=== PATIENT | male | born 1955 | race Caucasian/White ===

== ENCOUNTER 2021-10-09 09:09 | Day surgery (SDC) | payer OTHER, SELFPAY ==
--- NOTE | 2021-10-09 09:40 | HP.PCM_ITS ---
History and Physical Date of Admission: 10/09/21 Intake Visit Reasons:?EGD/CSCOPE Chief Complaint: EGD/CSCOPE Electrical Maintenance Technician Required: No Is patient in pain?: No PFSH Medical History?(Updated 09/17/21 @ 07:[address] Nickolas Latham MD) Hemorrhoids Surgical History?(Updated 09/17/21 @ 07:26 by Rox Tuesday) H/O shoulder replacement History of brain surgery History of hip replacement HPI HPI HPI: NASEEM RAMOS, is a 66 M who presents to the office today for Consultation regarding consideration for esophagogastroduodenoscopy with a history of gastroesophageal reflux disease and screening colonoscopy.? Patient has a history of intermittent bright red rectal bleeding.? He needs ongoing investigation regarding varices.? He has a history of liver disease and esophageal varices.? Apparently his most recent liver clinic evaluation was 2019.? The patient complains of epigastric burning.? It is improved with zxuz-mfu-pvaiacy 20 mg omeprazole therapy.He has had some intermittent bright red rectal bleeding over the past year.? As of August 05, 2021 white blood cell count was 6.5 with a hemoglobin 13.8 and hematocrit of 40.7 with a platelet count of 126,000.? His albumin was 3.9 with an alkaline phosphatase of 88 and ALT of 24 and an AST of 32 with a total bilirubin of 0.8 and a direct bilirubin of 0.2.? It is of note that on July 21, 2021 his hemoglobin A1c was 9.4 liver ultrasound done August 01, 2019 demonstrated common bile duct dilatation although less than previously with findings consistent with hepatic cirrhosis and hepatomegaly and decreased portal venous velocity.? Distended gallbladder with numerous small gallstones. Records from September 13, 2019 upper endoscopy demonstrates 4 columns of grade 2 varices found in the middle third of the esophagus and distal third of the esophagus with no stigmata of bleeding.? Additionally there were felt to be diffuse areas of mild hypertensive portal gastropathy within the cardia and body and antrum of the stomach.? There were no varices within the stomach.? The patient had a colonoscopy at the same setting.? 2 small sessile polyps were found in the sigmoid colon and removed with cold snare.? An additional polyp was seen in the sigmoid colon.? An additional polyp found in the ascending colon.? Additional polyp in the transverse colon.? Additional polyp in the rectum.? There were felt to be a medium sized rectal varices.? Diffuse portalcolopathy grading of esophageal varices.? Moderate diverticulosis. When esophageal varices are discovered, they are graded according to their size, as follows: * Grade 1 ? Small, straight esophageal varices * Grade 2 ? Enlarged, tortuous esophageal varices occupying less than one third of the lumen * Grade 3 ? Large, coil-shaped esophageal varices occupying more than one third of the lumen Upon arrival the patient states that he is already scheduled to have an EGD performed at the [facility] later this September.? He states however that he is not scheduled to have his colonoscopy at the same setting. ROS General General: Yes fatigue; No weight change, appetite, colon cancer, breast cancer or weakness HEENT HEENT: Yes eye surgery; No difficulty swallowing, eye injury, swollen glands or hoarseness Endo Endocrine: No thyroid disease, diabetes mellitus, thyroid cancer, Hair loss, heat intolerance or cold intolerance Skin Skin: No rash or changing moles Musc Musculoskeletal: Yes back problems, arthritis and rheumatoid arthritis; No gout or joint pain Cardio Cardiovascular: Yes high blood pressure; No murmur, pacemaker, heart disease, atrial fibrillation, heart attack, heart stent, palpitations, shortness of breat with exertion or chest pain Psych Psychiatric: Yes depression; No anxiety or hearing voices Resp Respiratory: Yes shortness of breath, Yes sleep apnea, Yes cough, No COPD, No asthma, No emphysema and No wheezing Gastro Gastrointestinal: No abdominal pain, No nausea or vomiting, Yes diarrhea, No constipation, Yes blood in stool, No acid reflux, Yes hemorrhoids, No ulcers, No gallbladder problem and No black,tarry stools Nakul Hematologic: No blood thinners, No blood disorders, Yes bleeding, No anemia and No blood clots Neuro Neurologic: No system reviewed and no additional complaints, except as documented, No as per HPI, No abnormal gait, No abnormal hearing, No abnormal movements, No abnormal speech, No behavioral changes, No burning sensations, No confusion, No convulsions, No disequilibrium, No dizziness, No localized weakness, No frequent falls, No headache(s), No lack of coordination, No loss of vision, No memory loss, No numbness, No other visual disturbances, No radicular pain, No restless legs, No sensory deficit, No syncope, No tingling, No t remor(s), No weakness and No other Exam Const General: cooperative, comfortable and no acute distress Nutritional Appearance: obese Resp Effort & Inspection: normal respiratory effort Cardio Rate: regular rate Rhythm: regular rhythm Other: 2/6 systolic ejection murmur GI Inspection: normal to inspection Assessment and Plan Assessment and Plan (1) Blood in stool: ?Status:?Acute (2) Esophageal varices determined by endoscopy: ?Status:?Acute ?Plan: Slight amount of confusion the patient's presentation today.? He states that he is already scheduled in [place] to have his upper endoscopy.? Quite frankly it would make appropriate sense for him to have a colonoscopy at the same setting.? We will try to assist the patient by contacting the [facility] and see if we can expedite that care for him.? I appreciate the opportunity of assisting with the surgical care. Copy: [facility] Nickolas Latham M.D., F.A.C.S. I have re-examined the patient. There are no clinical changes since date of exam. Nickolas Latham M.D., F.A.C.S.
[2021-10-09] MEDS: Lactated Ringers 1,000 ML 15 ML IV (09:47)
[2021-10-09 09:49] VITALS: BP 126/92; PULSE 78; RESP 16; TEMP 36.6; O2SAT 98; BMI 34.1
--- NOTE | 2021-10-09 10:00 | IMM_PTH ---
PATIENT: NASEEM RAMOS LOC: EN U#:[id number] AGE/SX: 66/M ROOM: RE10/09/[address]: Dr. Nickolas Latham MD : 1955 BED: DIS: 10/09/2021 SPEC #: [id number] RECD: 10/09/21 13:15 STATUS: MYRIAM REJessenia #: [id number] PATRICE: 10/09/21 10:[address]: Nickolas Latham DEPT: IMMUNOHISTOCHEMISTRY RECD BY: Mely Mena ENTERED: 10/09/21 13:15 SP TYPE: IMMUNO OTHR DR: [facility] Tissues: A - Stomach, NOS Procedures: H Pylori (initial) PHYSICIAN & INSTITUTION [place] [id number] SPECIMEN INFORMATION: Tissue Source: A ? Antrum biopsy Clinical Info: Blood in stool, esophageal varices Specimen Number: [id number] CPT code: 10285 METHODOLOGY: Deparaffinized sections of prefer/formalin-fixed tissue or PAP/DQ stained slides are incubated with monoclonal/polyclonal antibodies/oligonucleotide probes. Localization is made via biotin free immunoperoxidase method. Appropriate controls are performed and reacted as expected. Results on target cell population are indicated in the following table: RESULTS: ANTIBODY / CLONE RESULT Block A H Pylori (polyclonal) negative These tests were developed and their performance characteristics determined by [facility]. They may not have been cleared or approved by the U.S. Food and Drug Administration. The FDA has determined that such clearance or approval is not necessary. The above immunohistochemical/dualISH markers are ordered and reviewed by the Pathologist. INTERPRETATION: A. Antrum, biopsy: Negative for Helicobacter pylori organisms. SJ:radha 10/13/2021
--- NOTE | 2021-10-09 10:00 | EGD_PTH ---
PATIENT: NASEEM RAMOS LOC: EN U#:[id number] AGE/SX: 66/M ROOM: RE10/09/[address]: Dr. Nickolas Latham MD : 1955 BED: DIS: 10/09/2021 SPEC #: [id number] RECD: 10/09/21 12:19 STATUS: MYRIAM DENIA #: [id number] PATRICE: 10/09/21 10:[address]: Nickolas Latham DEPT: SURGICAL PATHOLOGY RECD BY: Dana Ferrer ENTERED: 10/09/21 13:03 SP TYPE: EGD BIOPSY OT DR: [facility] Tissues: A - Gastric mucous membrane B - Sigmoid colon biopsy Procedures: Surgery Specimen Level IV HEADER OPERATION: Colonoscopy with biopsy, EGD with biopsy ([facility]) PRE-OP DIAGNOSIS: Blood in stool, esophageal varices TISSUE SUBMITTED: A ? Antrum biopsy, B ? Mid sigmoid colon polyp MICROSCOPIC DIAGNOSIS A. Antrum, biopsy: Mild gastritis. See microscopic description and comment. B. Mid sigmoid colon polyp, biopsy: Hyperplastic polyp. TUCKER:radha 10/12/2021 COMMENT A. The results of immunohistochemistry for Helicobacter pylori will be reported separately ([id number]). MICROSCOPIC DESCRIPTION Slides are reviewed. A. The specimen shows fragments of gastric mucosa with chronic inflammatory cell infiltrates in the lamina propria consisting of lymphocytes and plasma cells, consistent with mild chronic gastritis. GROSS DESCRIPTION A - Received in fixative is one container labeled with the patient's name and designated antrum biopsy. The specimen consists of one irregular fragment of light limon soft tissue that measures 0.3 x 0.3 x 0.1 cm. The specimen is totally submitted in one cassette. B - Received in fixative is one container labeled with the patient's name and designated mid sigmoid colon polyp. The specimen consists of one irregular fragment of light limon soft tissue that measures 0.3 x 0.3 x 0.1 cm. The specimen is totally submitted in one cassette. / TUCKER:radha 10/09/2021 TC:3 CPT: 84039 x2
[2021-10-09 11:01] LABS: Bedside Glucose 265 mg/dL (74-106)
--- NOTE | 2021-10-09 12:04 | OP.EGD_ITS ---
Patient Name: Manuel Greer Procedure Date: 10/09/2021 11:27 AM Date of : 1955 Age: 66 Procedure: Upper GI endoscopy Indications: 1st degree variceal surveillance (known small varices, no prior bleeding) Providers: Nickolas Latham MD Medicines: See the Anesthesia note for documentation of the administered medications Complications: No immediate complications. Procedure: Pre-Anesthesia Assessment: - Prior to the procedure, a History and Physical was performed, and patient medications and allergies were reviewed. The patient's tolerance of previous anesthesia was also reviewed. The risks and benefits of the procedure and the sedation options and risks were discussed with the patient. All questions were answered, and informed consent was obtained. Prior Anticoagulants: The patient has taken no previous anticoagulant or antiplatelet agents. ASA Grade Assessment: III - A patient with severe systemic disease. After reviewing the risks and benefits, the patient was deemed in satisfactory condition to undergo the procedure. After obtaining informed consent, the endoscope was passed under direct vision. Throughout the procedure, the patient's blood pressure, pulse, and oxygen saturations were monitored continuously. The gastroscope was introduced through the mouth, and advanced to the second part of duodenum. The upper GI endoscopy was accomplished without difficulty. The patient tolerated the procedure well. Scope In: 11:33:40 AM Scope Out: 11:38:16 AM Total Procedure Duration Time 0 hours 4 minutes 36 seconds Findings: Grade II varices were found in the middle third of the esophagus and in the lower third of the esophagus. Diffuse mildly erythematous mucosa without bleeding was found in the gastric antrum. Biopsies were taken with a cold forceps for histology. Diffuse mildly friable mucosa with no bleeding was found in the stomach. The examined duodenum was normal. Impression: - Grade II esophageal varices. 3 columns Hiatal hernia - Erythematous mucosa in the antrum. Biopsied. - Friable gastric mucosa. - Normal examined duodenum. Recommendation: - Discharge patient to home. - Resume previous diet. - Continue present medications. - Telephone my office for pathology results in 1 week. Procedure Code(s): --- Professional --- 08317, Esophagogastroduodenoscopy, flexible, transoral; with biopsy, single or multiple Diagnosis Code(s): --- Professional --- I85.00, Esophageal varices without bleeding K31.89, Other diseases of stomach and duodenum CPT copyright 2017 [employer]. All rights reserved. The codes documented in this report are preliminary and upon line service attendant review may be revised to meet current compliance requirements. Nickolas Latham MD 10/09/2021 12:03:42 PM This report has been signed electronically. Number of Addenda: 0 Note Initiated On: 10/09/2021 11:27 AM
--- NOTE | 2021-10-09 12:04 | OP.CCLET_ITS ---
10/09/2021 [facility] Re : Upper GI endoscopy procedure for [facility] This procedure was performed on Saturday, October 09, 2021. My impressions and recommendations are as follows: Impressions : - Grade II esophageal varices. 3 columns Hiatal hernia - Erythematous mucosa in the antrum. Biopsied. - Friable gastric mucosa. - Normal examined duodenum. Recommendations : - Discharge patient to home. - Resume previous diet. - Continue present medications. - Telephone my office for pathology results in 1 week. My findings are described in the full procedure note, which is enclosed. If I can be of further assistance, please feel free to contact me at Doctor phone number(s): Work: . Sincerely, Nickolas Latham MD 10/09/2021 12:03:42 PM This report has been signed electronically.
[2021-10-09 12:08] VITALS: BP 126/92; BP 134/83; PULSE 74; RESP 16; TEMP 36.7; O2SAT 95
--- NOTE | 2021-10-09 12:11 | OP.CCLET_ITS ---
10/09/2021 [facility] Re : Colonoscopy procedure for [facility] This procedure was performed on Saturday, October 09, 2021. My impressions and recommendations are as follows: Impressions : - Non-thrombosed external hemorrhoids, non-thrombosed internal hemorrhoids and internal hemorrhoids that prolapse with straining, but require manual replacement into the anal canal (Grade III) found on digital rectal exam. - One 3 mm polyp in the mid sigmoid colon, removed with a cold biopsy forceps. Resected and retrieved. - Diverticulosis in the sigmoid colon and in the descending colon. - Friability with no bleeding in the entire examined colon in scattered areas noted by scope contact. Suspect probable hemorrhoidal bleeding from findings and history. No current bleeding noted. Recommendations : - Discharge patient to home. - Resume previous diet. - Continue present medications. - Telephone my office for pathology results in 1 week. - Repeat colonoscopy in 5 years for surveillance. My findings are described in the full procedure note, which is enclosed. If I can be of further assistance, please feel free to contact me at Doctor phone number(s): Work: . Sincerely, Nickolas Latham MD 10/09/2021 12:10:30 PM This report has been signed electronically.
--- NOTE | 2021-10-09 12:11 | OP.COLON_ITS ---
Patient Name: Manuel Greer Procedure Date: 10/09/2021 11:40 AM Date of : 1955 Age: 66 Procedure: Colonoscopy Indications: Rectal bleeding Providers: Nickolas Latham MD Medicines: See the Anesthesia note for documentation of the administered medications Patient Profile: Last Colonoscopy: date unknown. Complications: No immediate complications. Procedure: Pre-Anesthesia Assessment: - Prior to the procedure, a History and Physical was performed, and patient medications and allergies were reviewed. The patient's tolerance of previous anesthesia was also reviewed. The risks and benefits of the procedure and the sedation options and risks were discussed with the patient. All questions were answered, and informed consent was obtained. Prior Anticoagulants: The patient has taken no previous anticoagulant or antiplatelet agents. ASA Grade Assessment: III - A patient with severe systemic disease. After reviewing the risks and benefits, the patient was deemed in satisfactory condition to undergo the procedure. After I obtained informed consent, the scope was passed under direct vision. Throughout the procedure, the patient's blood pressure, pulse, and oxygen saturations were monitored continuously. The colonoscope was introduced through the anus and advanced to the cecum, identified by appendiceal orifice and ileocecal valve. The colonoscopy was performed without difficulty. The patient tolerated the procedure well. The quality of the bowel preparation was adequate to identify polyps. The ileocecal valve and the appendiceal orifice were photographed. Scope In: 11:39:26 AM Scope Withdrawal Time 0 hours 8 minutes 0 seconds Scope Out: 11:55:44 AM Total Procedure Duration Time 0 hours 16 minutes 18 seconds Findings: The digital rectal exam findings include non-thrombosed external hemorrhoids, non-thrombosed internal hemorrhoids and internal hemorrhoids that prolapse with straining, but require manual replacement into the anal canal (Grade III). A 3 mm polyp was found in the mid sigmoid colon. The polyp was sessile. The polyp was removed with a cold biopsy forceps. Resection and retrieval were complete. Multiple diverticula were found in the sigmoid colon and descending colon. A scattered area of mildly friable mucosa with no bleeding was found in the entire colon. Impression: - Non-thrombosed external hemorrhoids, non-thrombosed internal hemorrhoids and internal hemorrhoids that prolapse with straining, but require manual replacement into the anal canal (Grade III) found on digital rectal exam. - One 3 mm polyp in the mid sigmoid colon, removed with a cold biopsy forceps. Resected and retrieved. - Diverticulosis in the sigmoid colon and in the descending colon. - Friability with no bleeding in the entire examined colon in scattered areas noted by scope contact. Suspect probable hemorrhoidal bleeding from findings and history. No current bleeding noted. Recommendation: - Discharge patient to home. - Resume previous diet. - Continue present medications. - Telephone my office for pathology results in 1 week. - Repeat colonoscopy in 5 years for surveillance. Procedure Code(s): --- Professional --- 33513, Colonoscopy, flexible; with biopsy, single or multiple Diagnosis Code(s): --- Professional --- K64.2, Third degree hemorrhoids K64.4, Residual hemorrhoidal skin tags D12.5, Benign neoplasm of sigmoid colon K63.89, Other specified diseases of intestine K62.5, Hemorrhage of anus and rectum K57.30, Diverticulosis of large intestine without perforation or abscess without bleeding CPT copyright 2017 [employer]. All rights reserved. The codes documented in this report are preliminary and upon machine rigger review may be revised to meet current compliance requirements. Nickolas Latham MD 10/09/2021 12:10:30 PM This report has been signed electronically. Number of Addenda: 0 Note Initiated On: 10/09/2021 11:40 AM
[2021-10-09 12:15] VITALS: BP 126/92; BP 131/86; PULSE 75; RESP 16; O2SAT 96
[2021-10-09 12:20] VITALS: BP 126/92; PULSE 76; RESP 18; O2SAT 95
[2021-10-09 12:24] VITALS: BP 126/92; BP 138/85; PULSE 73; RESP 18; TEMP 36.9; O2SAT 95
[2021-10-09 12:40] VITALS: BP 126/92
== END 2021-10-09 13:09 | disposition home or self-care (01) ==
LOC: EN 09:13 → AC 09:16
PROVIDERS: Visit Provider Surgery
PROC: 0DJD8ZZ Inspection of Lower Intestinal Tract, Via Natural or Artificial Opening Endoscopic (ICD-10-PCS; CPT 45378; principal; 2021-10-09 09:55)
DX: I85.00 Esophageal varices without bleeding (principal); J44.9 Chronic obstructive pulmonary disease, unspecified; E11.9 Type 2 diabetes mellitus without complications; K82.8 Other specified diseases of gallbladder; K57.30 Diverticulosis of large intestine without perforation or abscess without bleeding; K44.9 Diaphragmatic hernia without obstruction or gangrene; K64.4 Residual hemorrhoidal skin tags; K64.2 Third degree hemorrhoids; K63.89 Other specified diseases of intestine; D12.5 Benign neoplasm of sigmoid colon; K31.89 Other diseases of stomach and duodenum; I10 Essential (primary) hypertension; G47.30 Sleep apnea, unspecified; R05.3 Chronic cough
CPT/HCPCS: 45380; 43239; 82962; 88305; 88342; J7120; J2405

== ENCOUNTER 2022-11-12 17:40 | Emergency (ER) | payer OTHER, SELFPAY ==
[2022-11-12 17:41] VITALS: BP 121/62; PULSE 84; RESP 18; TEMP 36.6; O2SAT 98; BMI 38.2
--- NOTE | 2022-11-12 17:51 | EKG12_ITS ---
Test Reason : CP Blood Pressure : / mmHG Vent. Rate : 084 BPM Atrial Rate : 084 BPM P-R Int : 130 ms QRS Dur : 090 ms QT Int : 382 ms P-R-T Axes : 000 044 042 degrees QTc Int : 451 ms Normal sinus rhythm Low voltage QRS Borderline ECG Confirmed by JORDI MUJICA, KIT ([id number]), news video editor JOSEPHINE TIJERINA ([id number]) on 11/15/2022 8:43:57 AM Referred By: SARAH/GLENIS Confirmed By:YODIT BACON MD
[2022-11-12 18:34] VITALS: O2SAT 96
--- NOTE | 2022-11-12 18:39 | RAD_ITS ---
STUDY: X-RAY CHEST REASON FOR EXAM: Male, 67 years old. chest pain TECHNIQUE: Single AP portable view of the chest. COMPARISON: None. FINDINGS: The lungs are clear and expanded. There is no demonstrated pleural abnormality. Normal size heart. Normal mediastinum and red. Normal visualized pulmonary arteries. Normal visualized aortic arch and descending thoracic aorta. Normal visualized thoracic spine. There is degenerative osteoarthritis of the bilateral shoulders. Previous right shoulder surgery. There is no demonstrated abnormality of the visualized soft tissue structures of the upper abdomen. RAD/Chest 1 View (Portable) IMPRESSION: Normal x-ray examination of the chest. Electronically Signed: Pa Horn MD at 18:56 EDT ,
[2022-11-12 18:56] LABS: Absolute Lymphocyte Count 1.07 X10^3/uL (0.83-4.51); Absolute Neutrophil Count 4.2 X10^3/uL (2.0-7.7); Basophil# 0.06 X10^3/uL; Eosinophil# 0.16 X10^3/uL; Eosinophils% 2.6 % (0-5); Hematocrit 29.7 % (40-54); Hemoglobin 9.4 g/dL (13.0-16.5); Lymphocyte # 1.07 X10^3/ul (0.83-4.51); Lymphocyte % 17.3 % (19-41); Mean Corp Hgb Conc 31.6 g/dL (32-36); Mean Corpuscular Hgb 28.9 pg (27.0-32.0); Mean Corpuscular Volume 91.4 fL (80-94); Mean Platelet Vol. 10.4 fl (6.2-12.0); Monocyte# 0.66 X10^3/uL; Monocyte% 10.7 % (0-10); NRBC Flagged by Analyzer 0 % (0-5); Neutrophil # 4.21 X10^3/uL (2.7-7.7); Neutrophil % 67.9 % (47-70); Platelet Count 165 K/mm3 (150-450); RBC Distribution Width CV 16.2 % (11.6-14.6); RBC Distribution Width SD 54.3 fl (35.1-43.9); Red Blood Count 3.25 M/mm3 (4.6-6.2); White Blood Count 6.2 K/mm3 (4.4-11.0)
[2022-11-12 19:06] LABS: Anion Gap 5 (5-15); BUN 11 mg/dL (7-18); BUN/Creat Ratio 8.7 RATIO (10-20); Calcium,Total 8.4 mg/dL (8.5-10.1); Chloride 106 mmol/L (98-107); Creatinine, Serum 1.26 mg/dL (0.70-1.30); EST Glomerular Filtration Rate 61 mL/min (>60); Est Glom Filt Rate - Afr Amer 74 mL/min (>60); Estimated Creatinine Clearance 55.79 ml/min; Glucose 93 mg/dL (74-106); Potassium 3.8 mmol/L (3.5-5.1); Sodium Level 137 mmol/L (136-145); Troponin-I HS (w/2H Reflex) 8 pg/mL (3.0-78.0)
[2022-11-12 19:15] VITALS: BP 153/80; PULSE 81; RESP 22; O2SAT 96
[2022-11-12 20:18] VITALS: BP 151/81; PULSE 82; RESP 18; O2SAT 93
--- NOTE | 2022-11-12 20:28 | ED.VIS.CHEST ---
HPI History of Present Illness Chief Complaint: Chest Pain Informant: patient Onset/Context/Timing Onset: Days (3) Activity at onset: gradual Timing: Continuous Quality: Positive for Dull Location: Left Chest Worsened By: Nothing Relieved By: Nothing Associated Symptoms: Positive for Dyspnea and Cough; Negative for Nausea, Vomiting, Diaphoresis, Fever, Lightheadedness, Acid Reflux or Palpitations Narrative Narrative: Patient presents with chest pain that began 2 days ago. Patient states it came on gradually. Patient states it has been constant. Patient states he feels fatigued. Patient also admits to some swelling in his lower legs. Patient admits to some shortness of breath and cough. Patient denies any fevers or chills. Patient states the pain is mainly over the left side of his chest. Patient states nothing makes it better and nothing makes it worse. Patient describes his pain as dull. Patient is a smoker and diabetic. Patient denies any other cardiac or PE risk factors. [facility] Medical History Arthritis Chronic cough Chronic pain COPD (chronic obstructive pulmonary disease) Diabetes Gastric reflux Hemorrhoids Hepatitis History of blood transfusion Hypertension Sleep apnea Smoker Wears dentures Home Medications budesonide-formoterol HFA 160 mcg-4.5 mcg/actuation aerosol inhaler (Symbicort) 1 inh inhalation ONCE 09/28/21 [History Last Taken Unknown] glipizide 10 mg tablet 10 mg PO DAILY 09/28/21 [History Last Taken Unknown] hydrochlorothiazide 25 mg tablet 25 mg PO QAM 09/28/21 [History Last Taken Unknown] lisinopril 10 mg tablet 10 mg PO DAILY 09/28/21 [History Last Taken Unknown] metformin 1,000 mg tablet 1,000 mg PO BID 09/28/21 [History Last Taken Unknown] methocarbamol 500 mg tablet 500 mg PO TID 09/28/21 [History Last Taken Unknown] omeprazole 40 mg capsule,delayed release 40 mg PO DAILY 09/28/21 [History Last Taken Unknown] pregabalin 100 mg capsule (Lyrica) 100 mg PO BID 09/28/21 [History Last Taken Unknown] rosuvastatin 10 mg tablet (Crestor) 10 mg PO DAILY 09/28/21 [History Last Taken Unknown] sildenafil 100 mg tablet (Viagra) 100 mg PO DAILY PRN ED 09/28/21 [History Last Taken Unknown] tamsulosin 0.4 mg capsule 0.4 mg PO QHS 09/28/21 [History Last Taken Unknown] vitamin B complex 1 tab PO DAILY 09/28/21 [History Last Taken Unknown] zolpidem 10 mg tablet (Ambien) 10 mg PO QHS PRN Insomnia 09/28/21 [History Last Taken Unknown] oxycodone-acetaminophen 7.5 mg-325 mg tablet 1 tab PO Q6H PRN Pain 10/08/21 [History Last Taken Unknown] Allergy/AdvReac Type Severity Reaction Status Date / Time aspirin Allergy Upset Verified 11/12/22 17:42 Stomach egg AdvReac Upset Verified 11/12/22 17:42 Stomach Surgical History H/O shoulder replacement History of brain surgery History of hip replacement Social History Smoking Status: Current every day smoker tobacco type: cigarettes ROS ROS ED Constitutional Constitutional ED: Denies chills or fever(s) Eyes Eyes: Denies blurry vision or change in vision ENT ENT ED: Reports rhinorrhea; Denies sore throat Cardiovascular Cardiovascular: Reports chest pain; Denies palpitations Respiratory/Chest Respiratory/Chest: Reports cough and dyspnea Gastrointestinal Gastrointestinal: Denies abdominal pain, nausea or vomiting Genitourinary Genitourinary ED: Denies dysuria or hematuria Musculoskeletal Musculoskeletal: Reports neck pain; Denies back pain Integumentary Denies abscess or rash Neurologic Neurologic: Reports weakness; Denies headache(s) Allergic/Immunologic Allergic/Immunologic ED: Denies mouth swelling or urticaria EXAM Physical Exam Const Vital Signs: 11/12/22 17:41 11/12/22 18:34 11/12/22 19:15 Temperature 97.8 F Temperature Source Temporal Pulse Rate 84 81 Respiratory Rate 18 22 H Blood Pressure 121/62 H 153/80 H Blood Pressure Mean 81 104 Pulse Ox 98 96 96 Oxygen Delivery Method Room Air Room Air Room Air 11/12/22 20:18 Temperature Temperature Source Pulse Rate 82 Respiratory Rate 18 Blood Pressure 151/81 H Blood Pressure Mean 104 Pulse Ox 93 Oxygen Delivery Method Room Air Positive well nourished, well developed and obese General Appearance ED: well developed and NAD Nutritional Appearance: obese HEENT normocephalic and atraumatic Eyes PERRL and EOMs intact bilaterally Neck supple and no JVD Chest Wall palpation of chest normal Resp normal respiratory effort and clear to auscultation bilaterally Effort and Inspection: Negative for respiratory distress Cardio regular rate and regular rhythm GI soft to palpation and non-tender Extremity normal to inspection General Extremety ED: Yes edema; Negative for tenderness General Extremity: edema bilateral lower extremity Details: moderate Neuro oriented x3, CN's II-XII intact bilaterally and no sensory deficits noted Sensorium / Orientation: awake and alert Motor Exam: strength 5/5 throughout Psych mental status grossly normal Skin no rashes or lesions noted Heart Score History: Slightly/Non-Suspicious ECG: Normal Age: >/= 65 years Risk Factors: 1 or 2 Risk Factors Troponin: </= Normal Limit Score: 3 MDM MDM MDM Narrative Medical decision making narrative: Differential diagnosis includes cardiac dysrhythmia, cardiac ischemia, congestive heart failure, pneumonia, pneumothorax, musculoskeletal pain, and anxiety. EKG will be obtained to assess for cardiac dysrhythmia and cardiac ischemia. Chest x-ray will be obtained to assess for pneumonia and congestive heart failure. CBC will be obtained to assess for leukocytosis and anemia. Basic metabolic profile will be obtained to assess for electrolyte abnormality and renal function. High-sensitivity troponin will be obtained to assess for cardiac ischemia. Lab Data Attestation: I reviewed the patient's lab results. Lab results narrative: CBC was reviewed. There is a stable anemia with a hemoglobin of 9.4 and hematocrit 29.7. Platelets are normal. Basic metabolic profile was reviewed and was essentially within normal limits. High-sensitivity troponin was reviewed and was normal at 8. 2-hour repeat troponin was also normal at 8. Labs: Laboratory Results - last 24 hr 11/12/22 11/12/22 18:35 20:30 WBC 6.2 RBC 3.25 L Hgb 9.4 L Hct 29.7 L MCV 91.4 MCH 28.9 MCHC 31.6 L RDW Std Deviation 54.3 H RDW Coeff of Jeff 16.2 H Plt Count 165 MPV 10.4 Immature Gran % (Auto) 0.500 Neut % (Auto) 67.9 Lymph % (Auto) 17.3 L [place] % (Auto) 10.7 H Eos % (Auto) 2.6 Baso % (Auto) 1.0 Absolute Neuts (auto) 4.2 Absolute Lymphs (auto) 1.07 Nucleated RBC % 0 Sodium 137 Potassium 3.8 Chloride 106 Carbon Dioxide 26.0 Anion Gap 5 BUN 11 Creatinine 1.26 Estim Creat Clear Calc 55.79 Est GFR (MDRD) Af Amer 74 Est GFR (MDRD) Non-Af 61 BUN/Creatinine Ratio 8.7 L Glucose 93 Calcium 8.4 L Troponin I High Sens 8 8 Radiography Chest X-Ray - ED: 1 View, Read by ED Physician, Read by Radiologist and No Acute Disease Diagnostic Testing: Clinical Impression(s) from Imaging Studies Chest X-Ray 11/12/22 18:39 IMPRESSION: Normal x-ray examination of the chest. Electronically Signed: Pa Horn MD at 18:56 EDT , Portable 1 view chest x-ray was obtained. On my independent interpretation, lung lundberg are clear. There is normal cardiac silhouette. Bony thorax is normal. There is no acute process noted. Radiologist also interpreted the x-ray and agrees. EKG Initial EKG: Attestation: I personally reviewed and interpreted this EKG as follows: Interpretation: Sinus Rhythm (84) and No Acute Injury Pattern Comments: EKG was obtained. On my independent interpretation, it showed a normal sinus rhythm with a rate of 84. [place] interval, QRS interval, and QTc intervals were all normal. [place] was normal. There are no acute ST or T wave changes. Prior EKG tracings: not available for review Prior: No Prior Treatment and Re-Evaluation :: Patient was advised of his findings. Patient has a HEART score of 3. Patient was advised that this is low risk for acute cardiac event. Patient was instructed to follow-up with his primary care physician in 5 to 7 days. Patient understood and was agreeable with the plan. All questions were answered. Discharge Plan Triage Chief Complaint: Chest Pain ED Provider: Devon Carter Dx/Rx/DC Orders Clinical Impression: Peripheral edema, Chest pain Instructions: ED Chest Pain, Uncertain Cause Prescriptions: No Action pregabalin [Lyrica] 100 mg capsule 100 mg PO BID methocarbamol 500 mg tablet 500 mg PO TID budesonide-formoterol [Symbicort] 160-4.5 mcg/actuation HFA aerosol inhaler 1 inh inhalation ONCE sildenafil [Viagra] 100 mg tablet 100 mg PO DAILY PRN (Reason: ED) Rx Instructions: administer 30 minutes to 4 hours before activity omeprazole 40 mg capsule,delayed release(DR/EC) 40 mg PO DAILY zolpidem [Ambien] 10 mg tablet 10 mg PO QHS PRN (Reason: Insomnia) vitamin B complex Tablet 1 tab PO DAILY glipizide 10 mg tablet 10 mg PO DAILY hydrochlorothiazide 25 mg tablet 25 mg PO QAM lisinopril 10 mg tablet 10 mg PO DAILY rosuvastatin [Crestor] 10 mg tablet 10 mg PO DAILY tamsulosin 0.4 mg capsule 0.4 mg PO QHS metformin 1,000 mg tablet 1,000 mg PO BID oxycodone-acetaminophen 7.5-325 mg tablet 1 tab PO Q6H PRN (Reason: Pain) Patient Comments: take 1 tablet by mouth every 6 hours if needed for pain [facility] [Primary Care Provider] - 5-7 Days Disposition Disposition: Home, Self Care
[2022-11-12 20:45] LABS: Reflex Troponin-HS? (from REC) Y
[2022-11-12 21:08] LABS: Troponin-I HS 8 pg/mL (3.0-78.0)
[2022-11-12 21:32] VITALS: BP 125/79; PULSE 79; RESP 18; O2SAT 96
== END 2022-11-12 21:34 | disposition home or self-care (01) ==
PROVIDERS: Emergency Provider Emergency Medicine; Visit Provider Emergency Medicine
DX: R07.9 Chest pain, unspecified (principal); J44.9 Chronic obstructive pulmonary disease, unspecified; E11.9 Type 2 diabetes mellitus without complications; I10 Essential (primary) hypertension; F17.210 Nicotine dependence, cigarettes, uncomplicated; Z79.899 Other long term (current) drug therapy; Z79.51 Long term (current) use of inhaled steroids; Z79.84 Long term (current) use of oral hypoglycemic drugs; K21.9 Gastro-esophageal reflux disease without esophagitis; R60.9 Edema, unspecified
CPT/HCPCS: 71045; 80048; 84484; 85025; 93005; 99284; A4216